=== PATIENT | male | born 1980 | race Caucasian/White ===

== ENCOUNTER 2020-01-15 11:04 | Emergency (ER) | payer MEDICAID ==
[~2020-01-15] VITALS: Ht 175.3 cm; Wt 83.9 kg
[2020-01-15 11:08] VITALS: BP_SYST 128
--- NOTE | 2020-01-15 11:08 | NUR ---
Patient to ER bed 04 to gown for evaluation. Side rails up.
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
[2020-01-15] MEDS ORDERED: KETOROLAC TROMETHAMINE 30 MG VIAL IM ONE (11:30)
--- NOTE | 2020-01-15 11:30 | NUR ---
CANDACE Plascencia at bedside examining patient.
--- NOTE | 2020-01-15 11:34 | NUR ---
X-ray done at bedside as ordered by Dr. Plascencia. Patient tolerated the procedure well.
[2020-01-15 12:47] VITALS: BP_SYST 124
--- NOTE | 2020-01-15 12:47 | NUR ---
Patient given written and verbal discharge instructions and verbalizes understanding. ER MD discussed with patient the results and treatment provided. Patient in stable condition. ID arm band removed. Rx of Ibuprofen and Bactrim given. Patient educated on pain management and to follow up with PMD. Pain Scale 0/10. Opportunity for questions provided and answered. Medication side effect fact sheet provided.
--- NOTE | 2020-01-15 15:48 | NUR ---
Director Sales Training Note Patient requested to see a web content & social media manager. ED had provided homeless resource packet. FACILITY SPECIALIST met with patient in the ED waiting room. Patient stated he wanted a motel voucher. He is homeless and was recently in long term. He has been to shelters and many hospital ED but no one has been able to get him a motel room. Explained that the [facility] was for patients with or at high risk of Covid. He does not believe this and thinks he was at risk because he has been to so many hospitals. He has a bike and has no phone. His ex- may assist him. Discussed prison options and follow up at [facility], which may provide better access to their internal homeless programs. FACILITY SPECIALIST is unaware of any motel vouchers that patient would qualify for immediately and he has reached out to programs already that have begun the process of finding a more termite exterminator solution. He is hindered due to not having a phone or ID, which will take the programs longer to assist him. He denies a mental health diagnosis. Patient was given food and does not need clothing. He has a bike. Rebeca GROVES asked web content & social media manager to return to help patient make calls. FACILITY SPECIALIST used her private phone to wait on hold with 211 for 30 minutes. Patient was told that he does not qualify for a motel room, but they could call APS for an immediate referral if he were to wait in the waiting room for an indefinite period. Patient is not legally disabled. Patient was given more resources, many of which he has tried to no immediate result. Patient then wanted to call a [employer] [facility] from which he had once received a motel voucher, [facility] in [place]. The ED Admitting desk assisted with the call while FACILITY SPECIALIST waited on 211 hold. No answer. Patient then stated he heard that [facility] gave out vouchers. He used my phone to call but anyone that might help was out of the office for two hours. I needed to return to my other duties. I offered patient a taxi to a prison if his ex- could come by and get his bike or possibly a bus voucher and directions to a prison. Patient decided to wait for his ex-.
== END 2020-01-15 12:47 | disposition home or self-care (01) ==
LOC: SED 11:04
DX: M25.561 Pain in right knee (principal); M25.511 Pain in right shoulder; Z59.0 Homelessness
CPT/HCPCS: 73030; 73564; 96372; 99284; J1885